=== PATIENT | female | born 2000 | race Caucasian/White ===

== ENCOUNTER 2018-04-04 10:31 | Emergency (ER) | payer SELFPAY ==
--- NOTE | 2018-04-04 11:49 | ER ---
Nurse's Notes [facility] Name: Ellen Bone Age: 17 yrs Sex: Female : 2000 Arrival Date: 04/04/2018 Time: 10:35 Bed Waiting Private MD: Jarvis Gandhi W Diagnosis: ED Course: 04/04 10:35 Patient arrived in ED. sb2 10:35 Jarvis Gandhi MD is Private Physician. sb2 10:48 Patient's name was called from ER lobby. No response. sv 11:00 Patient's name was called from ER lobby. No response. sv 11:15 Patient's name was called from ER lobby. No response. sv Administered Medications: No medications were administered Outcome: 11:48 Patient left the ED. sv Signatures: Dulce Luz, RN RN Sandee Chen sb2
== END 2018-04-04 11:48 | disposition left against medical advice (07) ==
LOC: ER 10:31
DX: Z53.21 Procedure and treatment not carried out due to patient leaving prior to being seen by health care provider (principal)

== ENCOUNTER 2019-08-06 07:06 | Day surgery (SDC) | payer OTHER ==
[2019-08-03 16:39] LABS: Absolute Lymphocytes (CBC) 2.2 K/uL (0.7-4.9); Basophils % 0.4 % (0-1.3); Hematocrit 37.1 % (36.0-45.0); MPV 10.8 fL (7.6-11.3); RBC Red Blood Cell Count 4.51 M/uL (3.86-4.86)
[2019-08-06] MEDS ORDERED: Ringers Lactate 1,000 ML IV ONE (07:31)
[2019-08-06] MEDS ORDERED: LIDOCAINE 1% W/EPI 1:100,000 MDV 20 ML VIAL ONE (07:37)
[2019-08-06 07:48] VITALS: O2SAT 100
[2019-08-06] MEDS ORDERED: PROPOFOL 200 MG/20 ML VIAL IV ONE (08:08)
[2019-08-06] MEDS ORDERED: LIDOCAINE 1% MPF 2 ML AMPULE ONE (08:08)
[2019-08-06] MEDS ORDERED: FENTANYL CITR 100 MCG/2 ML ONE (08:08)
[2019-08-06] MEDS ORDERED: MIDAZOLAM HCL 2 MG/2 ML INJ ONE (08:08)
[2019-08-06] MEDS ORDERED: ONDANSETRON 4 MG/2 ML VIAL ONE ×3 (08:31→10:39)
[2019-08-06] MEDS ORDERED: EPHEDRINE SULF 50 MG/ML VIAL ONE (08:42)
[2019-08-06] MEDS ORDERED: KETOROLAC 30 MG/ML INJ ONE (09:17)
[2019-08-06] MEDS ORDERED: Mastisol Adhesive Liq ONE (09:19)
--- NOTE | 2019-08-06 09:28 | P.BOP ---
Preoperative diagnosis: cervical LAD Postoperative diagnosis: same Primary procedure: excision deep cervical LN Senior Property Accountant: NONE,NONE Estimated blood loss: <5ml Specimen: R cervical LN, fresh to path Findings: fleshy pink LN Anesthesia: General Complications: None Implants: none Fluids & blood products: crystalloid 600ml Transferred to: Recovery Room Condition: Good
[2019-08-06] MEDS: HYDROMORPHONE HCL 1 MG/ML INJ ONE ×2 (10:00→10:06)
[2019-08-06] MEDS ORDERED: TRAMADOL HCL 50 MG TAB ONE (10:33)
[2019-08-06 11:23] VITALS: BP 128/69; TEMP 98.1
--- NOTE | 2019-08-06 20:50 | OP ---
Date of Procedure: 08/06/2019 Surgeon: Dulce Newby MD Indication For Procedure: Ellen is a 18-year-old with a history of palpable cervical lymphadenopat hy for several months. She underwent an ultrasound of the neck demonstrating an 11 and 17 mm lymph n odes, but they were nonspecific. The risks, benefits, and alternatives and differential diagnosis we re discussed with the patient and her mother. They opted for excisional lymph node biopsy. Description Of Procedure: The patient was brought to the operating room. She was placed under gener al anesthesia via LMA. A shoulder roll was placed. The neck was extended. Due to change in positio maxime compared to clinic evaluation, the ultrasound was brought to the field to aid an identification of the lymph nodes and to aid in decision making regarding incision placement. The lymph nodes were located in the upper portion of the carotid sheath at the level of the hyoid. Once identification an d planned incision site was made, the ultrasound was removed from the field and the patient's neck wa s prepped and draped in a standard fashion using Betadine. A 2 to 2.5 cm incision was made through t he skin and subcutaneous tissues. The tissues were bluntly dissected and the platysma was identified . This platysma was divided with Bovie electrocautery. Careful dissection in the field was undertak en and the skin edges were retracted using a Weitlaner. The anterior border of the sternocleidomasto id muscle was identified. The tissues were carefully dissected and retracted. The carotid sheath wa s identified and entered. Prior to entering the carotid sheath, a small lymph node was noted, but wa s approximately 5 mm. It was removed and sent with the main specimen. After opening the carotid she ath, careful dissection using Eden allowed identification of the 2 lymph nodes noted on clinical an d radiographic exam. These lymph nodes were carefully dissected with the Harmon electrocautery and a peanut dissector. Both of the enlarged lymph nodes were removed. Bleeding was very minimal. After removal of the lymph nodes, the surgical site was examined. There was no significant bleeding. The area was irrigated with sterile saline and closed in layered fashion using 4-0 Vicryl deep sutures f or closure of the platysmal and dermal layers and closure in a subcuticular fashion using 5-0 Monocry l for the skin. The medial part of the incision had a small gap and this was closed with 2 interrupt ed 5-0 Vicryl sutures. Steri-Strips were applied with Mastisol to the incision site and the procedur e was concluded. The patient was returned to care of anesthesia for awakening and extubation in the operating room, which proceeded without difficulty. Complications: None. Disposition: Patient will be discharged home in the care of her family and follow up with Dr. Lilia barth in approximately 10 days for evaluation of wound healing. ELVA Voice ID: [id number] Report ID: [id number]
== END 2019-08-06 12:07 | disposition home or self-care (01) ==
LOC: OR 07:06
PROVIDERS: ATTEND Otolaryngology
PROC: 07B10ZX Excision of Right Neck Lymphatic, Open Approach, Diagnostic (ICD-10-PCS; principal; 2019-08-06 08:15)
DX: R59.0 Localized enlarged lymph nodes (principal); Z80.9 Family history of malignant neoplasm, unspecified; Z83.3 Family history of diabetes mellitus; Z82.49 Family history of ischemic heart disease and other diseases of the circulatory system
CPT/HCPCS: 85025; 36415; 81025; 88307; 38510; J2704; J2250; J3010; J2001; J1170; J7120; J2405 ×3; 88305

== ENCOUNTER 2022-01-14 08:06 | Day surgery (SDC) | payer OTHER ==
[2022-01-11 14:26] LABS: Absolute Lymphocytes (CBC) 2.1 K/uL (0.7-4.9); Hematocrit 37.7 % (36.0-45.0); Lymphocytes % 26.1 % (15.3-44.8); MPV 9.6 fL (7.6-11.3); RBC Red Blood Cell Count 4.56 M/uL (3.86-4.86)
[2022-01-14 08:32] LABS: Specific Gravity > 1.030 (1.005-1.030)
[2022-01-14] MEDS ORDERED: Ringers Lactate 1,000 ML IV ONE (08:33)
[2022-01-14] MEDS ORDERED: CEFAZOLIN/SWI 2gm 2 GM/20 ML SYR ONE (08:33)
[2022-01-14] MEDS ORDERED: propofoL 200 MG/20 ML VIAL IV ONE (09:29)
[2022-01-14] MEDS ORDERED: FENTANYL CITR 100 MCG/2 ML ONE (09:36)
[2022-01-14] MEDS ORDERED: LIDOCAINE 2% MPF 5 ML VIAL ONE (09:37)
[2022-01-14] MEDS ORDERED: KETOROLAC 30 MG/ML INJ ONE (09:37)
[2022-01-14] MEDS ORDERED: MIDAZOLAM HCL 2 MG/2 ML INJ ONE (09:37)
[2022-01-14] MEDS ORDERED: dexAMETHasone 10 MG/ML VIAL ONE (09:37)
[2022-01-14] MEDS ORDERED: LIDOCAINE 1% 20 ML MDV ONE (09:41)
[2022-01-14] MEDS ORDERED: BUPIVACAINE 0.5% PF 10 ML VIAL ONE (09:41)
--- NOTE | 2022-01-14 10:11 | P.OP ---
Preoperative diagnosis: RIGHT Axillary Cyst Postoperative diagnosis: RIGHT Axillary Cyst Primary procedure: Wide local excision of RIGHT Axillary Cyst Anesthesia: GETA + Local Estimated blood loss: <5cc Specimen: axillary tissue Findings: axillary cyst, possible hidradenitis Complications: None Transferred to: Recovery Room Condition: Good
[2022-01-14] MEDS ORDERED: ONDANSETRON 4 MG/2 ML VIAL ONE ×2 (10:13→11:41)
[2022-01-14] MEDS: MEPERIDINE HCL 25 MG/ML SYR ONE ×2 (10:43→10:48)
[2022-01-14 10:52] VITALS: O2SAT 100
[2022-01-14 14:08] VITALS: BP 140/73; TEMP 97
--- NOTE | 2022-01-14 20:55 | OP ---
Date of Procedure: 01/14/2022 Surgeon: Duc Guillaume MD, Preoperative Diagnosis: Right axillary cyst. Postoperative Diagnosis: Right axillary cyst. Procedure Performed: Wide local excision, right axillary cyst. Anesthesia: General endotracheal plus local with 0.25% Marcaine. Estimated Blood Loss: Less than 5 cc. Specimen: Axillary tissue. Findings: Axillary cyst, possible hidradenitis. Complications: None. Disposition: Patient was transferred to recovery room in good condition. Procedure In Detail: After informed consent was obtained, patient was brought to the operating room, prepped and draped in the usual sterile fashion. After adequate anesthesia was achieved, I anesthet ized the area of the right axilla around the cystic structure which was approximately 1.5 cm elliptic al through subcutaneous tissues. I then made an elliptical incision using a 15 blade down to subcuta neous tissues. I dissected circumferentially down using electrocautery to the subcutaneous fat for a pproximately 2 cm x 2.5 cm elliptical incision. This was then sent off for pathologic examination. I irrigated the area. Hemostasis was achieved with electrocautery. The wound was then closed with a deep dermal plane of 3-0 Vicryl suture and skin was closed with a 4-0 Monocryl in a running fashion. Dermabond was placed over top. The patient tolerated the procedure without any complication and transferred to PACU in good condition. All counts were correct at the e nd of the case. DANA/MARTA Voice ID: [id number] Report ID: [id number]
== END 2022-01-14 12:05 | disposition home or self-care (01) ==
LOC: OR 08:06
PROVIDERS: ATTEND Surgery
PROC: 0HBBXZZ Excision of Right Upper Arm Skin, External Approach (ICD-10-PCS; principal; 2022-01-14 09:15)
DX: L72.0 Epidermal cyst (principal); Z20.822 Contact with and (suspected) exposure to COVID-19
CPT/HCPCS: 85025; 80048; 36415; 81025; 88304; 11402; U0003; J2704; J2250; J3010; J1100; J2175; J0690; J7120; J2405 ×2

== ENCOUNTER 2022-10-05 14:20 | Emergency (ER) | payer OTHER ==
--- OUTSIDE RECORDS SUMMARY | 2022-10-05 14:24 | XMS REPORT | Continuity of Care Document ---
:2000 Author Organization [facility] t Address [address] [place] [address] Care Team Providers Name Role Phone Jarvis Gandhi Primary Care Physician Yun Fuentes MD Attending Clinician YUN FUENTES Attending Clinician Unavailable Unknown, Attending Attending Clinician Unavailable JENI BARAJAS Attending Clinician Unavailable Jeni Wren Attending Clinician Doctor Unassigned, [place] Attending Clinician Unavailable JOELLEN YOUNG Attending Clinician Unavailable Lab, Adc Fam Pob I Attending Clinician Unavailable Maryjo Bynum Attending Clinician Payers Payer Name Policy Type Policy Number Effective Date Expiration Date S ource Problems Condition Condition Condition Status Onset Resolution Last Treating Co mments Source Name Details Category Date Date Treatment Clinician Date No known No known Disease Unive rs active active ity of problems problems [facility] Allergies, Adverse Reactions, Alerts Allergy Allergy Status Severity Reaction(s) Onset Inactive Treating Comm ents Source Name Type Date Date Clinician NO KNOWN Drug Active Univers ALLERGIE Class ity of S [facility] Social History Social Habit Start Date Stop Date Quantity Comments Source Exposure to 2022-04-30 2022-05-10 Not sure University of SARS-CoV-2 00:00:00 14:48:00 [facility] (event) [place] Tobacco use and 2022-05-10 2022-05-10 Smokeless tobacco Un iversity of exposure 00:00:00 00:00:00 non-user [facility] Sex Assigned [birth year] Universit y of 00:00:00 00:00:00 [facility] Smoking Status Start Date Stop Date Source Never smoked tobacco [facility] Medications Ordered Filled Start Stop Current Ordering Indication Dosage Frequency Signature Comments Components Source Medication Medication Date Date Medication? Clinician (SIG) Name Name ISOTRETINJAMES 2021- No Take by Un bari N (ACCUTANE 7-22 07-22 mouth. ity o f ORAL) 15:49: 00:00 [place] 05 :00 [facility] Branch bromphenira Yes [id number] 5mL Take 5 mL Univers mine-pseudo 7-22 by mouth 4 it y of ephedrine-D [place] ([place] (BROMF[place] 00 times Medical DM) 2-30-10 daily as Bran ch mg/5 mL needed for syrup Congestion /Allergies . codeine-gua 0 Yes 5mL Take 5 mL U nivers ifenesin 7-22 by mouth ity of 10-100 mg/5 00:00: every 6 [place] as mL oral 00 (six) Medical solution hours as Branch needed for Cough. Indication s: cough bromphenira Yes [id number] 5mL Take 5 mL Univers mine-pseudo 7-22 by mouth 4 it y of ephedrine-D 00:00[place] ([place] (BROMF[place] 00 times Medical DM) 2-30-10 daily as Bran ch mg/5 mL needed for syrup Congestion /Allergies . codeine-gua 2021-0 Yes 5mL Take 5 mL U nivers ifenesin 7-22 by mouth ity of 10-100 mg/5 00:00: every 6 [place] as mL oral 00 (six) Medical solution hours as Branch needed for Cough. Indication s: cough ISOTRETINOI 2019-0 Yes Take by Uni vers N (ACCUTANE 1-11 mouth. ity of ORAL) 22:26: [address] ISOTRETINOI 2019-0 Yes Take by Uni vers N (ACCUTANE 1-11 mouth. ity of ORAL) 22:26: [address] ISOTRETINOI 2019-0 Yes Take by Uni vers N (ACCUTANE 1-11 mouth. ity of ORAL) 16:26: [address] ISOTRETINOI 2020-0 Yes Take by Uni vers N (ACCUTANE 1-11 mouth. ity of ORAL) 16:26: [place] [facility] Branch metoclopram 2020-0 Yes [id number] 1 tab Univers kimberlee HCl 10 1-11 every 4hr ity of mg tablet 00:00: as needed [place] as 00 for nausea Medical Branch acetaminoph 2020-0 Yes [id number] /2 - 1 Univers en-codeine 1-11 tab Every ity of 300-30 mg 00:00: 4hrs as [place] tablet 00 needed for Medical pain or Branch cough requiring narcotic metoclopram 2020-0 Yes [id number] 1 tab Univers kimberlee HCl 10 1-11 every 4hr ity of mg tablet 00:00: as needed [place] as 00 for nausea Medical Branch acetaminoph 2020-0 Yes [id number] 2 - 1 Univers en-codeine 1-11 tab Every ity of 300-30 mg 00:00: 4hrs as [place] tablet 00 needed for Medical pain or Branch cough requiring narcotic metoclopram 2020-0 Yes [id number] 1 tab Univers kimberlee HCl 10 1-11 every 4hr ity of mg tablet 00:00: as needed [place] as 00 for nausea Medical Branch acetaminoph 2020-0 Yes [id number] 2 - 1 Univers en-codeine 1-11 tab Every ity of 300-30 mg 00:00: 4hrs as [place] tablet 00 needed for Medical pain or Branch cough requiring narcotic metoclopram 2020-0 Yes [id number] 1 tab Univers kimberlee HCl 10 1-11 every 4hr ity of mg tablet 00:00: as needed [place] as 00 for nausea Medical Branch acetaminoph 2020-0 Yes [id number] /2 - 1 Univers en-codeine 1-11 tab Every ity of 300-30 mg 00:00: 4hrs as [place] tablet 00 needed for Medical pain or Branch cough requiring narcotic metoclopram 2020-0 Yes [id number] 1 tab Univers kimberlee HCl 10 1-11 every 4hr ity of mg tablet 00:00: as needed [place] as 00 for nausea Medical Branch metoclopram 2020-0 Yes [id number] 1 tab Univers kimberlee HCl 10 1-11 every 4hr ity of mg tablet 00:00: as needed [place] as 00 for nausea Medical Branch acetaminoph 2020-0 2021- No [id number] /2 - 1 Univers en-codeine 1-11 -22 tab Every ity of 300-30 mg 00:00: 00:00 4hrs [place] tablet 00 :00 needed for Medical pain or Branch cough requiring narcotic NUVARING 2018-10 Yes INSERT 1 Unive rs 0.12-0.015 2-27 RING ity of mg/24 hr 00:00: VAG[place]ALLY [place] vaginal 00 FOR 3 Medical insert WEEKS Branch NUVARING 2018-10 Yes INSERT 1 Unive rs 0.12-0.015 2-27 RING ity of mg/24 hr 00:00: VAG[place]ALLY [place] vaginal 00 FOR 3 Medical insert WEEKS Branch NUVARING 2018-10 Yes INSERT 1 Unive rs 0.12-0.015 2-27 RING ity of mg/24 hr 00:00: VAGINALLY [place] vaginal 00 FOR 3 Medical insert WEEKS Branch NUVARING 2018-10 Yes INSERT 1 Unive rs 0.12-0.015 2-27 RING ity of mg/24 hr 00:00: VAGINALLY [place] vaginal 00 FOR 3 Medical insert WEEKS Branch NUVARING 2018-10 Yes INSERT 1 Unive rs 0.12-0.015 2-27 RING ity of mg/24 hr 00:00: VAGINALLY [place] vaginal 00 FOR 3 Medical insert WEEKS Branch NUVARING 2018-10 Yes INSERT 1 Unive rs 0.12-0.015 2-27 RING ity of mg/24 hr 00:00: VAGINALLY [place] vaginal 00 FOR 3 Medical insert WEEKS Branch acetaminoph Yes [id number] 10/21 Univers en-codeine 3-31 tab Every ity of 300-30 mg 00:00: 4hrs as [place] tablet 00 needed for Medical pain or Branch cough requiring narcotic naproxen Yes [id number] 375mg Take 1 Un bari 375 mg 3-31 tablet by ity of tablet 00:00: mouth 2 [place] 00 (two) Medical times Branch daily with meals. acetaminoph Yes [id number] 10/21 Univers en-codeine 3-31 tab Every ity of 300-30 mg 00:00: 4hrs as [place] tablet 00 needed for Medical pain or Branch cough requiring narcotic naproxen Yes [id number] 375mg Take 1 Un bari 375 mg 3-31 tablet by ity of tablet 00:00: mouth 2 (two) Medical times Branch daily with meals. acetaminoph 2017- Yes [id number] 10/21 Univers en-codeine 3-31 tab Every ity of 300-30 mg 00:00: 4hrs as [place] tablet 00 needed for Medical pain or Branch cough requiring narcotic naproxen 2017- Yes [id number] 375mg Take 1 Un bari 375 mg 3-31 tablet by ity of tablet 00:00: mouth 2 [place] (two) Medical times Branch daily with meals. acetaminoph Yes [id number] 10/21 Univers en-codeine 3-31 tab Every ity of 300-30 mg 00:00: 4hrs as [place] tablet 00 needed for Medical pain or Branch cough requiring narcotic naproxen Yes [id number] 375mg Take 1 Un bari 375 mg 3-31 tablet by ity of tablet 00:00: mouth 2 [place] (two) Medical times Branch daily with meals. naproxen Yes [id number] 375mg Take 1 Un bari 375 mg 3-31 tablet by ity of tablet 00:00: mouth 2 [place] (two) Medical times Branch daily with meals. naproxen Yes [id number] 375mg Take 1 Un bari 375 mg 3-31 tablet by ity of tablet 00:00: mouth 2 [place] (two) Medical times Branch daily with meals. acetaminoph 2021- No [id number] 10/21 Univers en-codeine 3-31 -22 tab Every ity of 300-30 mg 00:00: 00:00 4hrs [place] tablet 00 :00 needed for Medical pain or Branch cough requiring narcotic Vital Signs Vital Name Observation Time Observation Value Comments Source Systolic blood 2022-05-10 20:36:00 126 mm[Hg] Univer sity of pressure [facility] Diastolic blood 2022-05-10 20:36:00 83 mm[Hg] Unive rsity [facility] Heart rate 2022-05-10 20:36:00 103 /min Universi [facility] Body temperature 2022-05-10 20:36:00 36.83 Jennifer [facility] 2022-05-10 20:36:00 16 /min [facility] Body height 2022-05-10 20:36:00 180.3 cm Universi ty of [facility] Body weight 2022-05-10 20:36:00 112.492 kg Universi ty [facility] BMI 2022-05-10 20:36:00 34.59 kg/m2 [facility] Oxygen saturation in 2022-05-10 20:36:00 99 /min University of Arterial blood by [facility] Pulse oximetry Branch Respiratory rate 2021-10-07 00:04:00 17 /min [facility] Body height 2021-10-07 00:04:00 181.6 cm [facility] Body weight 2021-10-07 00:04:00 103.08 kg [facility] BMI 2021-10-07 00:04:00 31.25 kg/m2 [facility] Oxygen saturation in 2021-10-07 00:04:00 98 /min [place] of Arterial blood by [facility] Pulse oximetry Branch Systolic blood 2021-10-07 00:04:00 121 mm[Hg] [facility] pressure [facility] Diastolic blood 2021-10-07 00:04:00 78 mm[Hg] [facility] Heart rate 2021-10-07 00:04:00 101 /min [facility] Body temperature 2021-10-07 00:04:00 36.83 Jennifer [facility] Procedures Procedure Date / Time Performed Performing Clinician Rosana cummings POCT MOLECULAR FLU 2021-10-07 00:14:00 Unknown, Attending [facility] POCT MOLECULAR STREP 2021-10-07 00:11:00 Unknown, Attending [facility] ASSIGNMENT OF BENEFITS 2021-10-06 23:54:57 Doctor Unassigned, No [facility] Encounters Start End Encounter Admission Attending Care Care Encounter Source Date/Time Date/Time Type Type Clinicians Facility Department ID 2022-05-15 2022-05-15 Telephone Ran [facility] [id number] [facility] 00:00:00 00:00:00 [facility] [id number] it y of JUDA [id number] Arnaldo as BRIGHT?BLEA [id number] [address] MEDICAL OFFICE BUILDING 2022-05-10 2022-05-10 Outpatient R RAN [facility] [id number] Univers 15:20:00 15:42:36 YUN itjenna [facility] 2022-05-10 2022-05-10 Urgent Yun Fuentes [facility] [id number] Univers 15:20:00 15:42:36 Care Unknown, Attending HEALTH [id number] ity of JUDA [id number] Arnaldo as BRIGHT?BLEA [id number] [address] MEDICAL OFFICE [facility] 2021-10-06 2021-10-06 Outpatient R JENN [facility] [id number] Univers 17:20:00 18:35:02 JENI ity [facility] 2021-10-06 2021-10-06 Urgent Jeni Barajas [facility] [id number] Univers 17:20:00 18:35:02 Care Unknown, Attending HEALTH [id number] ity of [place] [id number] Arnaldo as BRIGHT?BLEA [id number] [address] MEDICAL OFFICE [facility] 2021-10-06 2021-10-06 Orders Doctor CAMELIA [id number] Univers 00:00:00 00:00:00 Only Unassigned, IRENE [id number] ity of [place] [facility] [id number] Arnaldo as [id number] [address] 2021-08-13 2021-08-13 Outpatient R HECTOR [facility] [id number] Univers 17:30:00 17:30:00 JOELLEN jimenez [facility] 2020-05-24 2020-05-24 Laboratory Lab, [facility] [id number] 16:06:04 16:26:04 Only Fam Pob I Health [id number] [place] [id number] Professio [id number] [place] [address] [address] 2020-05-24 2020-05-24 Laboratory Lab, Adc Fam Pob I [facility] [id number] Univers 16:06:04 16:26:04 Only Maryjo Crook [id number] ity of [place] 4.2.7.2.686 Arnadlo as Professio [id number] Me dical [address] Office Building [facility] 2020-05-24 2020-05-24 Outpatient R [facility] [id number] Univers 16:00:00 16:00:00 ity of [facility] 2020-05-24 2020-05-24 Letter Doctor CAMELIA [id number] 00:00:00 00:00:00 (Out) Unassigned, IRENE [id number] [place] [facility] 4.2.7.2.686 [id number] [facility] 2020-05-24 2020-05-24 Letter Doctor CAMELIA [id number] Univers 00:00:00 00:00:00 (Out) Unassigned, IRENE [id number] ity of [place] [facility] 4.2.7.2.686 Arnaldo as [phone] [address] Results Test Description Test Time Test Comments Results Result Comments Source POCT MOLECULAR FLU 2021-10-07 00:25:23 Test Item Value Reference Range Interpretation Comme nts POCT Molecular FluA (test code = 06970-8) Negative Negative POCT Molecular FluB (test code = 78987-8) Negative Negative Lab Interpretation (test code = 18320-4) Normal [id number] 00:21:23 Test Item Value Reference Range Interpretation Comments POCT Molecular Strep (test code = Negative Negative 45719-2) Lab Interpretation (test code = Normal 31569-7) [facility]
[2022-10-05 14:53] LABS: Absolute Lymphocytes (CBC) 2.2 K/uL (0.7-4.9); Hematocrit 40.4 % (36.0-45.0); Lymphocytes % 28.2 % (15.3-44.8); MCV 83.3 fL (80-100); MPV 9.2 fL (7.6-11.3); RBC Red Blood Cell Count 4.84 M/uL (3.86-4.86)
[2022-10-05 15:02] LABS: Protime INR 0.95
[2022-10-05 15:12] LABS: Urine Blood Negative (Negative); Urine Glucose Negative (Negative); Urine Protein Negative (Negative); Urine Specific Gravity >=1.030 (1.005-1.030); Urine pH 6.5 (5.0-7.0)
[2022-10-05 15:13] LABS: ALT/SGPT 23 U/L (13-56); AST/SGOT 13 U/L (15-37); Albumin 3.2 g/dL (3.4-5.0); Alkaline Phosphatase 61 U/L (45-117); BUN Blood Urea Nitrogen 14 mg/dL (7-18); Bicarbonate 27 mmol/L (21-32); Bilirubin Direct < 0.1 mg/dL (0-0.2); Bilirubin Total 0.3 mg/dL (0.2-1.0); Glomerular Filtration Rate 80 ml/min (=/>90); Glucose Level 144 mg/dL (74-106); Potassium 3.7 mmol/L (3.5-5.1); Protein, Total 7.3 g/dL (6.4-8.2); Sodium Level 137 mmol/L (136-145)
[2022-10-05 15:22] LABS: SARS-CoV-2 Antigen Rapid Res Negative (Negative)
[2022-10-05 15:28] LABS: Barbiturates NEGATIVE (NEGATIVE); Benzodiazepines NEGATIVE (NEGATIVE); Cocaine NEGATIVE (NEGATIVE); METHAMPHETAM NEGATIVE (NEGATIVE); Methadone NEGATIVE (NEGATIVE); Opiates NEGATIVE (NEGATIVE); Phencyclidine NEGATIVE (NEGATIVE); THC Cannibis NEGATIVE (NEGATIVE)
--- NOTE | 2022-10-05 17:36 | ER ---
Nurse's Notes [facility] Name: Ellen Bone Age: 21 yrs Sex: Female : 2000 Arrival Date: 10/05/2022 Time: 14:23 Bed 13 Private MD: Diagnosis: Acute stress reaction Presentation: 10/05 14:42 Chief complaint: Patient states: Suicidal thoughts x 1 week, recently had lexapro dose ph increased and rexulti added to treatment, pt states, " I just feel like there's static in my head and I have a tension headache and I keep having thoughts telling me to take a whole bottle of sedatives. I know I don't want to my kill myself nut the thought keeps going through my head." Denies attempt, mother is at bedside. Coronavirus screen: Vaccine status: Patient reports being unvaccinated. Ebola Screen: No symptoms or risks identified at this time. Initial Sepsis Screen: Does the patient meet any 2 criteria? No. Patient's initial sepsis screen is negative. Does the patient have a suspected source of infection? No. Patient's initial sepsis screen is negative. Risk Assessment: Do you want to hurt yourself or someone else? Patient reports desire/thoughts of hurting themselves or someone else. Provider notified. Onset of symptoms was October 05, 2022. 14:42 Method Of Arrival: Ambulatory 14:42 Acuity: FERMÍN 2 ph Triage Assessment: 14:50 General: Appears in no apparent distress. Behavior is calm, cooperative. Pain: Denies ph pain. Neuro: Level of Consciousness is awake, alert, obeys commands, Oriented to person, place, time, situation. Historical: - Allergies: 14:48 No Known Allergies; ph - Home Meds: 14:48 Lexapro Oral [Active]; Rexulti oral [Active]; ph - PMHx: 14:48 Depressive disorder; ph - Immunization history:: Adult Immunizations unknown. - Social history:: Smoking status: Patient denies any tobacco usage or history of. Patient uses alcohol, occasionally. Screenin:[address] [facility] ED Fall Risk Assessment (Adult) History of falling in the last 3 months, mb9 including since admission No falls in past 3 months (0 pts) Confusion or Disorientation No (0 pts) Intoxicated or Sedated No (0 pts) Impaired Gait No (0 pts) Mobility Assist Device Used No (0 pt) Altered Elimination No (0 pt) Score/Fall Risk Level 0 - 2 = Low Risk. Abuse screen: Denies threats or abuse. Nutritional screening: No deficits noted. Tuberculosis screening: No symptoms or risk factors identified. Assessment: 14:20 Respiratory: Airway is patent Respiratory effort is even, unlabored, Respiratory mb9 pattern is regular, symmetrical, Breath sounds are clear bilaterally. 14:30 Reassessment: pt states "I've been having these thoughts about harming myself by taking mb9 pills for about one week now." Pt denies wishing she were and intending on carrying out this plan. See C-SSRS screening form for more information. General: Appears in no apparent distress. comfortable, Behavior is calm, cooperative, appropriate for age. Pain: Denies pain. Neuro: Level of Consciousness is awake, alert, obeys commands, Oriented to person, place, time, situation, Appropriate for age Reports "it feels like I have static in my head". Cardiovascular: Heart tones S1 S2 present Rhythm is regular. GI: Abdomen is round non-distended. : No signs and/or symptoms were reported regarding the genitourinary system. EENT: No signs and/or symptoms were reported regarding the EENT system. Derm: Skin is pink, warm \\T\\ dry. Musculoskeletal: Range of motion: intact in all extremities. 15:30 Reassessment: No changes from previously documented assessment. Patient states symptoms mb9 have not improved. Cardiovascular: Rhythm is regular. Respiratory: Airway is patent. Derm: Skin is pink, warm \\T\\ dry. 16:30 Reassessment: Entered pts room to answer call maria teresa mom states "You all won't be able mb9 to do anything for her and she's miserable. We are ready to go." HEALTH SAFETY INSTRUCTOR, Shahid, notified. 16:49 Reassessment: Pt on phone with [facility]. mb9 17:58 Reassessment: pt denies any suicidal ideations. Airway patent. Respirations are even mb9 and unlabored. Rhythm is regular. Psych: 14:30 [place] Suicide Severity Screening: In the past month, have you wished you were mb9 or wished you could go to sleep and not wake up? Patient responds "No." "In the past month, have you actually had any thoughts of killing yourself?" Patient responds "yes." "In your lifetime, have you ever done anything, started to do anything, or prepared to do anything to end your life?" Patient responds "no.". Subjective: Patient's mood is sad, Delusions are denied, Hallucinations are denied Having thoughts of suicide. Denies suicidal plan. Objective: Patient is cooperative, Speech is normal, Affect is flat. Interventions: Removed personal items and placed in bag. Patient placed in hospital gown. Searched person for dangerous items. Urine collected and sent for urine drug test. Belonging list filled out. 14:30 Safety Checks: Personal items have been removed. Door is open. Visitors are present. Pt mb9 denies substance abuse. Commitment: Patient will be a voluntary commitment. Vital Signs: 14:42 BP 120 / 62; Pulse 91; Resp 18; Temp 98.2; Pulse Ox 100% on R/A; Weight 113.4 kg; ph Height 5 ft. 11 in. (180.34 cm); 15:30 BP 117 / 69; Pulse 89; Resp 18; Pulse Ox 100% ; Pain 0/10; mb9 16:50 BP 120 / 70; Pulse 89; Resp 18; Pulse Ox 100% ; mb9 17:58 BP 144 / 77; Pulse 80; Resp 18; Pulse Ox 100% ; mb9 14:42 Body Mass Index 34.87 (113.40 kg, 180.34 cm) ph ED Course: 14:23 Patient arrived in ED. rg4 14:26 Leonela Key FNP-C [facility]. kb 14:26 Jordi Robbins MD is Attending Physician. kb 14:46 Jennifer Jean-Baptiste RN is Primary Nurse. mb9 14:48 Triage completed. ph 14:50 Arm band placed on Patient placed in an exam room. ph 14:50 Fall risk band placed. Placed in gown. Bed in low position. Call light in reach. Side mb9 rails up X 1. 15:10 called the [facility] Crisis line/ Alexis will page out the screener behavior interventionist. eb 16:48 connected Joellen from [facility] with patient via iphone for patient screening. eb 17:59 No provider procedures requiring assistance completed. IV discontinued, intact, mb9 bleeding controlled, No redness/swelling at site. Pressure dressing applied. Administered Medications: No medications were administered Medication: 18:00 VIS not applicable for this client. mb9 Outcome: 17:35 Discharge ordered by . camilo 18:00 Discharged to home ambulatory. mb9 18:00 Condition: stable 18:00 Discharge instructions given to patient, Instructed on discharge instructions, follow up and referral plans. Demonstrated understanding of instructions, follow-up care. 18:00 Patient left the ED. mb9 Signatures: Leonela Key, CONCILIATION COURT JUDGE-C CONCILIATION COURT JUDGE-CkRosie Thakkar RN RN brenton Vigil, Faye rg4 Cristiane Valencia, Jennifer Bell RN RN mb9 Corrections: (The following items were deleted from the chart) 15:51 15:45 General: Appears in no apparent distress. comfortable, Behavior is calm, mb9 cooperative, appropriate for age, mb9 : 15:45 Pain: Denies pain. mb9 mb9 15:51 15:45 Neuro: Level of Consciousness is awake, alert, obeys commands, Oriented to mb9 person, place, time, situation, Appropriate for age Reports "it feels like I have static in my head". mb9 15:51 15:45 Cardiovascular: Heart tones S1 S2 present Rhythm is regular mb9 mb9 15:51 15:45 Respiratory: Airway is patent Respiratory effort is even, unlabored, Respiratory mb9 pattern is regular, symmetrical, Breath sounds are clear bilaterally. mb9 15:51 15:45 GI: Abdomen is round non-distended, mb9 mb9 15:51 15:45 : No signs and/or symptoms were reported regarding the genitourinary system. mb99 15:51 15:45 EENT: No signs and/or symptoms were reported regarding the EENT system. mb9 mb9 15:51 15:45 Derm: Skin is pink, warm \\T\\ dry. mb9 mb9 15:51 15:45 Musculoskeletal: Range of motion: intact in all extremities, mb9 mb9 15:51 15:45 Reassessment: pt states "I've been having these thoughts about harming myself by mb9 taking pills for about one week now." Pt denies wishing she were and intending on carrying out this plan. See C-SSRS screening form for more information. mb9 16:10 16:05 BP 117 / 69; Pulse 89bpm; Resp 18bpm; Pulse Ox 100%; Pain 0/10; mb9 mb9 17:42 16:30 Reassessment: Pts mom states "You all won't be able to do anything for her and mb9 she's miserable. We are ready to go." HEALTH SAFETY INSTRUCTOR, Shahid, notified mb9
--- NOTE | 2022-10-05 17:36 | EDPHYS ---
Physician Documentation [facility] Name: Ellen Bone Age: 21 yrs Sex: Female : 2000 Arrival Date: 10/05/2022 Time: 14:23 Bed 13 Private MD: ED Physician Jordi Robbins HPI: 10/05 15:05 This 21 yrs old Female presents to ER via Ambulatory with complaints of Suicidal kb Ideation. 15:05 The patient presents to the emergency department with depression, suicide ideation. kb Onset: The symptoms/episode began/occurred 1 week(s) ago. Past psychiatric history: Psychiatric medications include: Lexapro, Rexulti, Primary psychiatric physician: Dr. David Alexis. Associated signs and symptoms: Pertinent positives; depression, suicide ideation. Severity of symptoms: At their worst the symptoms were moderate in the emergency department the symptoms are unchanged. The patient has not experienced similar symptoms in the past. The patient has been recently seen by a physician:. Pt reports she has had depression intermittently for the last year. states she was started on lexapro, then rexulti added shortly after, which was about 2 months ago. Had a telemed visit last week with Dr Hernandez's PA and her doses were increased. States she has been having thought of suicide for a week and has never had those before. States she doesn't feel like herself, "I feel insane." States she does not want to harm herself, does not want to , but is having thoughts that tell her to take a bottle of pills. . Historical: - Allergies: 14:48 No Known Allergies; ph - Home Meds: 14:48 Lexapro Oral [Active]; Rexulti oral [Active]; ph - PMHx: 14:48 Depressive disorder; ph - Immunization history:: Adult Immunizations unknown. - Social history:: Smoking status: Patient denies any tobacco usage or history of. Patient uses alcohol, occasionally. ROS: 15:03 Constitutional: Negative for fever, chills, and weight loss. kb 15:03 Psych: Positive for suicidal ideation. 15:03 All other systems are negative. Exam: 15:03 Constitutional: This is a well developed, well nourished patient who is awake, alert, kb and in no acute distress. Head/Face: Normocephalic, atraumatic. ENT: Moist Mucous membranes Cardiovascular: Regular rate and rhythm with a normal S1 and S2. No gallops, murmurs, or rubs. No pulse deficits. Respiratory: Respirations even and unlabored. No increased work of breathing. Talking in full sentences Abdomen/GI: Soft, non-tender. No distention Skin: Warm, dry with normal turgor. Normal color. MS/ Extremity: Pulses equal, no cyanosis. Neurovascular intact. Full, normal range of motion. Neuro: Awake and alert, GCS 15, oriented to person, place, time, and situation. Moves all extremities. Normal gait. 15:03 Psych: Behavior/mood is pleasant, cooperative, depressed, Affect is calm, Oriented to person, place, time, Patient having thoughts of suicide. Denies suicidal plan. Judgement / Insight is normal. Memory is normal. Delusions/hallucinations are not present. 15:04 ECG was reviewed by the Attending Physician. kb Vital Signs: 14:42 BP 120 / 62; Pulse 91; Resp 18; Temp 98.2; Pulse Ox 100% on R/A; Weight 113.4 kg; ph Height 5 ft. 11 in. (180.34 cm); 15:30 BP 117 / 69; Pulse 89; Resp 18; Pulse Ox 100% ; Pain 0/10; mb9 16:50 BP 120 / 70; Pulse 89; Resp 18; Pulse Ox 100% ; mb9 17:58 BP 144 / 77; Pulse 80; Resp 18; Pulse Ox 100% ; mb9 14:42 Body Mass Index 34.87 (113.40 kg, 180.34 cm) ph MDM: 14:26 Patient medically screened. kb 15:04 Data reviewed: vital signs, nurses notes. Data interpreted: Pulse oximetry: on room air kb is 100 %. Interpretation: normal. Test interpretation: by ED physician or midlevel provider:. 17:32 Counseling: I had a detailed discussion with the patient and/or guardian regarding: the kb historical points, exam findings, and any diagnostic results supporting the discharge/admit diagnosis, lab results, radiology results, the need for outpatient follow up, a psychiatrist, to return to the emergency department if symptoms worsen or persist or if there are any questions or concerns that arise at home. 10/05 14:34 Order name: Acetaminophen; Complete Time: 15:17 kb 10/05 14:34 Order name: Basic Metabolic Panel; Complete Time: 15:17 kb 10/05 14:34 Order name: CBC with Diff; Complete Time: 15:03 kb 10/05 14:34 Order name: ETOH Level; Complete Time: 15:17 kb 10/05 14:34 Order name: Hepatic Function; Complete Time: 15:17 kb 10/05 14:34 Order name: PT-INR; Complete Time: 15:03 kb 10/05 14:34 Order name: Ptt, Activated; Complete Time: 15:03 kb 10/05 14:34 Order name: Salicylate; Complete Time: 15:17 kb 10/05 14:34 Order name: Urine Drug Screen; Complete Time: 15:36 kb 10/05 14:34 Order name: EKG; Complete Time: 14:35 kb 10/05 14:34 Order name: EKG - Nurse/Tech; Complete Time: 15:06 kb 10/05 14:37 Order name: SARS RAPID; Complete Time: 15:36 kb 10/05 15:13 Order name: Urine Dipstick-Ancillary; Complete Time: 15:17 EDMS 10/05 15:13 Order name: Urine --Ancillary (enter results); Complete Time: 15:17 eb 10/05 14:34 Order name: IV Saline Lock; Complete Time: 15:06 kb 10/05 14:34 Order name: Labs collected and sent; Complete Time: 15:06 kb 10/05 14:34 Order name: Suicide Precautions; Complete Time: 15:06 kb 10/05 14:34 Order name: Suicide Screening ([place]); Complete Time: 15:06 kb 10/05 14:34 Order name: Urine Dipstick-Ancillary (obtain specimen); Complete Time: 15:06 kb 10/05 14:34 Order name: Urine Test (obtain specimen); Complete Time: 15:06 kb EC:04 Rate is 74 beats/min. Rhythm is regular. QRS [place] is Normal. [place] interval is normal at kb 134 msec. QRS interval is normal at 88 msec. QT interval is normal at 404 msec. Administered Medications: No medications were administered Disposition: 18:28 Co-signature as Attending Physician, Jordi Robbins MD. rn Disposition Summary: 10/05/22 17:35 Discharge Ordered Location: Home kb Condition: Stable kb Diagnosis - Acute stress reaction kb Followup: kb - With: Emergency Department - When: As needed - Reason: Worsening of condition Followup: kb - With: Private Physician - When: 2 - 3 days - Reason: Recheck today's complaints, Continuance of care, Re-evaluation by your physician Discharge Instructions: - Discharge Summary Sheet kb - Suicidal Feelings: How to Help Yourself kb Forms: - Medication Reconciliation Form kb - Thank You Letter kb - Antibiotic Education kb - Prescription Opioid Use kb - Work release form ll1 Signatures: Dispatcher [employer] EDLeonela Daily, STALIN-C STALIN-Jordi Lerner MD MD rn Rosie Lee RN RN ph
[2022-10-05 18:12] VITALS: TEMP 98.2; O2SAT 100
[2022-10-05 18:15] VITALS: BP 144/77
--- NOTE | 2022-10-06 15:50 | EKG ---
Test Date: 2022-10-05 Test Time: 14:55:49 [employer] Operator: SHARON MEASUREMENT RESULTS: Intervals: Rate: 74 NM: 134 QRSD: 88 QT: 364 QTc: 404 [place] Laird: P: 52 NM: 134 QRS: 74 T: 61 INTERPRETIVE STATEMENTS: Normal sinus rhythm Normal ECG No previous ECG available for comparison Electronically Signed On 10-06-22 15:49:20 DOT COMPLIANCE SPECIALIST by Tristan Meredith
== END 2022-10-05 18:00 | disposition home or self-care (01) ==
LOC: ER 14:20
DX: F43.0 Acute stress reaction (principal); F32.A Depression, unspecified; Z20.822 Contact with and (suspected) exposure to COVID-19
CPT/HCPCS: 36415; 80048; 80076; 80307; 80320; 80329; 81003; 81025; 85025; 85610; 85730; 87811; 93005; 99284

== ENCOUNTER 2025-07-11 23:03 | Emergency (ER) | payer BC, OTHER ==
--- OUTSIDE RECORDS SUMMARY | 2025-07-11 23:07 | XMS REPORT | Continuity of Care Document ---
Author Name Unknown Address [address] [facility] [place] [address] Organization [facility] [place] Address [address] [facility] [place] [address] Care Team Providers Care Diamond Wheel Molder Name Role Phone RANCHO ORTEGA Primary Care Physician Skye lidia Elaine RN, Charla Pineda Attending Clinician Unavailab Peral Sapp Attending Clinician [phone] Unknown, Attending Attending Clinician Unavailab le UNKNOWN, ATTENDING Attending Clinician Unavailab le Doctor Unassigned, Zwolle Attending Clinician U Yun Brito MD Attending Clinician [phone] YUN FUENTES Attending Clinician Unavailable JENI BARAJAS Attending Clinician Unavailable Jeni Wren Attending Clinician [phone] JOELLEN YOUNG Attending Clinician Unavailabl e Lab, Adc Fam Pob I Attending Clinician Unavailab Maryjo Ritter Attending Clinician [phone] Payers Payer Name Policy Type Policy Number Effective Date Expirati on Date Source HIM [facility] O [id number] 2024 00:00:00 Problems Condition Name Condition Details Condition Category Status Onset Date Resolution Date Last Treatment Date Treating Clinician Comments Source No known active problems No known active problems Disease [facility] Allergies, Adverse Reactions, Alerts Allergy Name Allergy Type Status Severity Reaction(s) Onset Date Inactive Date Treating Clinician Comments Source NO KNOWN ALLERGIE S Drug Class Active [facility] Social History Social Habit Start Date Stop Date Quantity Comments Source Exposure to SARS-CoV-2 (event) 2022-11-10 00:00:00 2022-11-20 15:29:[address] [facility] Tobacco use and exposure 2022-05-10 00:00:00 2022-05-10 00:00:00 Smokeless tobacco non-user [facility] Sex Assigned At 2000 00:00:00 2000 00:00:[address] [facility] Smoking Status Start Date Stop Date Source Tobacco smoking consumption unknown [facility] Never smoked tobacco [facility] Medications Ordered Medication Name Filled Medication Name Start Date Stop Date Current Medication? Ordering Clinician Indication Dosage Frequency Signature (SIG) Comments Components Source ISOTRETINOI N (ACCUTANE ORAL) 05-10 15:49: 05 05-10 00:00 :00 No Take by mouth. [facility] bromphenira mine-pseudo ephedrine-D M (BROMFED DM) 2-30-10 mg/5 mL syrup 05-10 00:00: 00 Yes [id number] 5mL Take 5 mL by mouth 4 (four) times daily as needed for Congestion /Allergies . [facility] codeine-gua ifenesin 10-100 mg/5 mL oral solution 05-10 00:00: 00 Yes 5mL Take 5 mL by mouth every 6 (six) hours as needed for Cough. Indication s: cough [facility] ISOTRETINOI N (ACCUTANE ORAL) 10-30 22:26: 32 Yes Take by mouth. [facility] ISOTRETINOI N (ACCUTANE ORAL) 10-30 16:26: 32 Yes Take by mouth. [facility] metoclopram kimberlee HCl 10 mg tablet 10-30 00:00: 00 Yes [id number] 1 tab every 4hr as needed for nausea [facility] acetaminoph en-codeine 300-30 mg tablet 10-30 00:00: 00 05-10 00:00 :00 No [id number] 1/2 - 1 tab Every 4hrs as needed for pain or cough requiring narcotic [facility] NUVARING 0.12-0.015 mg/24 hr vaginal insert 2018-10 00:00: 00 Yes INSERT 1 RING VAGINALLY FOR 3 WEEKS [facility] naproxen 375 mg tablet 01-17 00:00: 00 Yes [id number] 375mg Take 1 tablet by mouth 2 (two) times daily with meals. [facility] acetaminoph en-codeine 300-30 mg tablet 01-17 00:00: 00 05-10 00:00 :00 No [id number] 1/2 - 1 tab Every 4hrs as needed for pain or cough requiring narcotic [facility] Vital Signs Vital Name Observation Time Observation Value Comments S ource Systolic blood pressure 2022-11-20 21:39:00 106 mm[Hg] [facility] Diastolic blood pressure 2022-11-20 21:39:00 72 mm[Hg] [facility] Heart rate 2022-11-20 21:39:00 82 /min [facility] Body temperature 2022-11-20 21:39:[address] [facility] Respiratory rate 2022-11-20 21:39:00 17 /min [facility] Body height 2022-11-20 21:39:00 180.3 cm [facility] Body weight 2022-11-20 21:39:00 121.609 kg [facility] BMI 2022-11-20 21:39:00 37.39 kg/m2 [facility] Oxygen saturation in Arterial blood by Pulse oximetry 2022-11-20 21:39:00 97 /min [facility] Oxygen saturation in Arterial blood by Pulse oximetry 2022-05-10 20:36:00 99 /min [facility] Systolic blood pressure 2022-05-10 20:36:00 126 mm[Hg] [facility] Diastolic blood pressure 2022-05-10 20:36:00 83 mm[Hg] [facility] Heart rate 2022-05-10 20:36:00 103 /min [facility] Body temperature 2022-05-10 20:36:[address] [facility] Respiratory rate 2022-05-10 20:36:00 16 /min [facility] Body height 2022-05-10 20:36:00 180.3 cm [facility] Body weight 2022-05-10 20:36:00 112.492 kg [facility] BMI 2022-05-10 20:36:00 34.59 kg/m2 [facility] Systolic blood pressure 2021-10-07 00:04:00 121 mm[Hg] [facility] Diastolic blood pressure 2021-10-07 00:04:00 78 mm[Hg] [facility] Heart rate 2021-10-07 00:04:00 101 /min [facility] Body temperature 2021-10-07 00:04:[address] [facility] Respiratory rate 2021-10-07 00:04:00 17 /min [facility] Body height 2021-10-07 00:04:00 181.6 cm [facility] Body weight 2021-10-07 00:04:00 103.08 kg [facility] BMI 2021-10-07 00:04:00 31.25 kg/m2 [facility] Oxygen saturation in Arterial blood by Pulse oximetry 2021-10-07 00:04:00 98 /min [facility] Procedures Procedure Date / Time Performed Performing Clinician Source POCT MOLECULAR STREP 2022-11-20 21:36:00 Unknown, Attzoila ta [facility] CONSENT/REFUSAL FOR DIAGNOSIS AND TREATMENT 2022-11-20 21:29:47 Doctor Unassigned, Zwolle [facility] POCT MOLECULAR FLU 2021-10-07 00:14:00 Unknown, Attend ing [facility] POCT MOLECULAR STREP 2021-10-07 00:11:00 Unknown, Attzoila ta [facility] ASSIGNMENT OF BENEFITS 2021-10-06 23:54:57 Docto r Unassigned, Zwolle [facility] PATIENT FINANCIAL RESPONSIBILITY - ALL FORMS Doctor Unassigned, Zwolle [facility] Encounters Start Date/Time End Date/Time Encounter Type Admission Type Attending [facility] Care Facility Care Department Encounter ID Source 2025-02-12 15:40:00 2025-02-12 15:40:00 Outpatient R [facility] [id number] [facility] 2022-11-21 00:00:00 2022-11-21 00:00:00 Letter (Out) Charla Elaine [facility] 1.840.114 350.1.13.10 4.2.7.2.686 [id number] [facility] 2022-11-20 15:20:00 2022-11-20 15:40:00 Urgent Care Pearl Rios Unknown, Attending [facility] 1..840.114 350.1.13.10 4.2.7.2.686 [id number] [facility] 2022-11-20 13:00:00 2022-11-20 13:00:00 Outpatient R UNKNOWN, ATTENDING [facility] [id number] [facility] 2022-11-20 00:00:00 2022-11-20 00:00:00 Orders Only Doctor Unassigned, Zwolle [facility] 1..840.114 350.1.13.10 4.2.7.2.686 [id number] [facility] 2022-05-15 00:00:00 2022-05-15 00:00:00 Telephone [facility]un Fu[facility] 1..840.114 350.1.13.10 4.2.7.2.686 [id number] [facility] 2022-05-10 15:20:00 2022-05-10 15:42:36 Outpatient R YUN FUENTES [facility] [id number] [facility] 2022-05-10 15:20:00 2022-05-10 15:42:36 Urgent Care Yun Fuentes Unknown, Attending [facility] 1.114 350.1.13.10 4.2.7.2.686 [id number] [facility] 2021-10-06 17:20:00 2021-10-06 18:35:02 Outpatient R JENI BARAJAS [facility] [id number] [facility] 2021-10-06 17:20:00 2021-10-06 18:35:02 Urgent Care Jeni Barajas Unknown, Attending [facility] 1.114 350.1.13.10 4.2.7.2.686 [id number] [facility] 2021-10-06 00:00:00 2021-10-06 00:00:00 Orders Only Doctor Unassigned, Zwolle [facility] 1.114 350.1.13.10 4.2.7.2.686 [id number] [facility] 2021-08-13 17:30:00 2021-08-13 17:30:00 Outpatient R SARITA YOUNGTANY [facility] [id number] [facility] 2020-05-24 16:06:04 2020-05-24 16:26:04 Laboratory Only Lab, Adc Fam Pob I [facility] 1.114 350.1.13.10 4.2.7.2.686 [id number] 2020-05-24 16:06:04 2020-05-24 16:26:04 Laboratory Only Lab, Adc Fam Pob I Maryjo Crook [facility] 1.114 350.1.13.10 4.2.7.2.686 [id number] [facility] 2020-05-24 16:00:00 2020-05-24 16:00:00 Outpatient R [facility] [id number] [facility] 2020-05-24 00:00:00 2020-05-24 00:00:00 Letter (Out) Doctor Unassigned, Zwolle [facility] 1.2.840.114 350.1.13.10 4.2.7.2.686 [id number] 2020-05-24 00:00:00 2020-05-24 00:00:00 Letter (Out) Doctor Unassigned, Zwolle [facility] 1.2.840.114 350.1.13.10 4.2.7.2.686 [id number] [facility] Orders Only Doctor Unassigned, Zwolle [facility] 1.2.840.114 350.1.13.10 4.2.7.2.686 [id number] [facility] Results Test Description Test Time Test Comments Results Result Co mments Source [facility] MOLECULAR [id number] 00:25:23* Test Item Value Reference Range Interpretation Comme nts POCT Molecular FluA (test co de = 10745-3) Negative Negative POCT Molecular FluB (test co de = 27621-9) Negative Negative Lab Interpretation (test cod e = 79900-2) Normal [facility] MOLECULAR [id number] 00:21:23* Test Item Value Reference Range Interpretation Comme nts POCT Molecular Strep (test c ode = 86125-6) Negative Negative Lab Interpretation (test cod e = 16249-3) Normal [facility]
[2025-07-12] MEDS ORDERED: NA CHLORIDE 0.9% 1,000 ML ONE (00:08)
[2025-07-12] MEDS ORDERED: METOCLOPRAMIDE 10 MG/2mL INJ ONE (00:08)
[2025-07-12] MEDS ORDERED: KETOROLAC 30 MG/ML INJ ONE (00:08)
[2025-07-12] MEDS ORDERED: DIPHENHYDRAMINE 50 MG/ML VIAL ONE (00:08)
[2025-07-12 00:27] LABS: Absolute Lymphocytes (CBC) 2.8 K/uL (0.7-4.9); Hematocrit 38.0 % (36.0-45.0); Hemoglobin 12.4 g/dL (12.0-15.0); MCH 27.6 pg (27.0-35.0); MCHC 32.6 g/dL (32.0-36.0); MCV 84.7 fL (80-100); MPV 10.1 fL (7.6-11.3); Nucleated RBC Absolute Count 0.0 (0-0); Nucleated Red Blood Cells % 0.2 % (0-0); RBC Red Blood Cell Count 4.49 M/uL (3.86-4.86); White Blood Count 8.90 thou/uL (4.3-10.9)
[2025-07-12 00:33] LABS: ALT/SGPT 18.0 U/L (13-56); AST/SGOT 12.0 U/L (15-37); Albumin 3.4 g/dL (3.4-5.0); Albumin/Globulin Ratio 1.0 (1.1-1.8); Alkaline Phosphatase 74.0 U/L (45-117); Anion Gap 7.3 mEq/L (5.0-15.0); BUN Blood Urea Nitrogen 19.0 mg/dL (7-18); Globulin 3.5 g/dL (2.3-3.5); Glucose Level 102.0 mg/dL (74-106); Potassium 3.3 mEq/L (3.5-5.1)
--- NOTE | 2025-07-12 01:34 | EDPHYS ---
Physician Documentation [facility] Name: Ellen Bone Age: 24 yrs Sex: Female : 2000 Arrival Date: 07/11/2025 Time: 23:03 Bed 20 Private MD: ED Physician Gino Bailon HPI: 07/12 01:15 This 24 yrs old Female presents to ER via Ambulatory with complaints of dr5 Numbness Of Face, Headache. 01:15 Onset: The symptoms/episode began/occurred acutely. Patient is a 24-year-old female dr5 with history of depression, migraines, hypothyroidism coming in with acute sudden headache that she describes as sharp from scientology to scientology. Patient reports she has mild numbness to left upper forehead with excruciating pain. Patient reports she has migraines and these headaches is similar to previous. Patient denies taking any medications prior to arrival.. Historical: - Allergies: 07/11 23:39 No Known Allergies; ha1 - PMHx: 23:39 depressive disorder; Migraine; Hypothyroidism; ha1 - PSHx: 23:39 LYMPH NODE REMOVAL OF NECK; ha1 - Immunization history:: Adult Immunizations up to date. - Infectious Disease History:: Denies. - Social history:: Smoking status: Patient denies any tobacco usage or history of. ROS: 07/12 01:15 Constitutional: as per hpi dr5 Exam: 01:15 Constitutional: This is a well developed, well nourished patient who is awake, alert, dr5 and in no acute distress. Head/Face: Normocephalic, atraumatic. Eyes: Pupils equal round and reactive to light, extra-ocular motions intact. Lids and lashes normal. Conjunctiva and sclera are non-icteric and not injected. Cornea within normal limits. Periorbital areas with no swelling, redness, or edema. ENT: Nares patent. No nasal discharge, no septal abnormalities noted. Tympanic membranes are normal and external auditory canals are clear. Oropharynx with no redness, swelling, or masses, exudates, or evidence of obstruction, uvula midline. Mucous membranes moist. Neck: Trachea midline, no thyromegaly or masses palpated, and no cervical lymphadenopathy. Supple, full range of motion without nuchal rigidity, or vertebral point tenderness. No Meningismus. Chest/axilla: Normal chest wall appearance and motion. Nontender with no deformity. No lesions are appreciated. Cardiovascular: Regular rate and rhythm with a normal S1 and S2. Normal PMI, no JVD. No pulse deficits. Respiratory: Lungs have equal breath sounds bilaterally, clear to auscultation. No rales, rhonchi or wheezes noted. No increased work of breathing, no retractions or nasal flaring. Back: No spinal tenderness. No costovertebral tenderness. Full range of motion. Skin: Warm, dry with normal turgor. Normal color with no rashes, no lesions, and no evidence of cellulitis. MS/ Extremity: Pulses equal, no cyanosis. Neurovascular intact. Full, normal range of motion. Neuro: Awake and alert, GCS 15, oriented to person, place, time, and situation. Cranial nerves II-XII grossly intact. Motor strength 5/5 in all extremities. Sensory grossly intact. Cerebellar exam normal. Normal gait. Vital Signs: 07/11 23:22 BP 126 / 82; Pulse 100; Resp 18 S; Temp 98.1; Pulse Ox 99% on R/A; Weight 111.13 kg; 1 Height 5 ft. 7 in. ; Pain 6/10; 07/12 00:45 BP 109 / 54; Pulse 73; Resp 18; Pulse Ox 99% on R/A; ha1 01:00 BP 110 / 68; Pulse 80; Resp 18 S; Pulse Ox 99% on R/A; 1 02:00 BP 117 / 65; Pulse 74; Resp 18 S; Pulse Ox 100% on R/A; 1 07/11 23:22 Body Mass Index 38.37 (111.13 kg, 170.18 cm) [facility] 07/11 23:22 Pain Scale: Adult [facility] NIH Stroke Scale Scores: 01:15 NIHSS Score: 0 dr5 MDM: 07/11 23:18 Medical Screening Exam initiated dr5 07/12 01:15 Differential diagnosis: viral Infection, Migraine, anemia, electrolyte abnormality, dr5 intracranial hemorrhage, intracranial mass. Data reviewed: vital signs, nurses notes, lab test result(s), CBC, white blood cell count, hemoglobin, hematocrit, platelets, electrolytes, sodium, potassium, chloride, serum bicarbonate, BUN, creatinine, serum glucose, Serum , radiologic studies, CT scan. Consideration of Admission/Observation Escalation of care including admission/observation considered. Discussion consider patient found to have abnormality on CT scan.. I considered the following discharge prescriptions or medication management in the emergency department I discussed and recommended Over The Counter medications, Medications were administered in the Emergency Department. See MAR. Independent interpretation of the following test(s) in the Emergency Department CT Scan: My interpretation is Independent interpretation of CT does not reveal mass or bleed. Test considered but Not performed: CT: Discussion with family and patient regarding CT scan with no red flags. Patient reports that she would like to have CT scan just to make sure. Risks and benefits explained.. Historians other than the Patient: Parent: Mother at bedside. Care significantly affected by the following chronic conditions: Hypothyroidism, depression, migraine. Care significantly affected by the following Social Determinants of Health: Poor access to healthcare and/or lack of insurance, Poor access to transportation, Problems related to employment. Counseling: I had a detailed discussion with the patient and/or guardian regarding the historical points, exam findings, and any diagnostic results supporting the discharge/admit diagnosis, the presence of at least one elevated blood pressure reading (>120/80) during this emergency department visit, lab results, radiology results, the need for outpatient follow up, for definitive care, a family practitioner, a neurologist, to return to the emergency department if symptoms worsen or persist or if there are any questions or concerns that arise at home. Medication response: Normal saline, Reglan, Benadryl, Toradol. Response to treatment: the patient's symptoms have markedly improved after treatment. Special discussion: Based on the patient's history, exam and DX evaluation, there is no indication for emergent intervention or inpatient [place]. It is understood by the patient/guardian that if the SXs persist or worsen they need to return immediately for re-evaluation. I discussed with the patient/guardian in detail that at this point there is no indication for admission to the hospital. It is understood, however, that if the symptoms persist or worsen the patient needs to return immediately for re-evaluation. Based on the history and exam findings, there is no indication for further emergent testing or inpatient evaluation. I discussed with the patient/guardian the need to see the neurologist for further evaluation of the symptoms. 01:33 ED course: Patient reports he is better after medication. Patient used to be on Imitrex dr5 and Ubrelvy and would like to have prescription for both of those. Will also prescribe Zofran for nausea. Recommend patient follow-up with neurology as needed. Recommend patient also follow-up primary care doctor. All questions are. Strict ER precautions given.. 07/11 23:47 Order name: CBC with Diff; Complete Time: 00:33 dr5 07/11 23:47 Order name: CMP; Complete Time: 00:36 dr5 07/11 23:59 Order name: Test, Serum; Complete Time: 00:29 ha1 07/11 23:34 Order name: CT Head Brain wo Cont dr5 07/11 23:34 Order name: IV Start; Complete Time: 00:22 dr5 Administered Medications: 00:15 Drug: NS 0.9% IV 1000 ml IV at 1000 ml once; to be given as a bolus over 60 minutes ha1 Route: IV; Rate: 1000 ml; Site: right antecubital; 02:00 Follow up: Response: No adverse reaction; IV Status: Completed infusion ha1 00:17 Drug: metoCLOPramide IVP 10 mg IVP once; over 1 to 2 minutes Route: IVP; Site: right ha1 antecubital; 00:35 Follow up: Response: No adverse reaction; Marked relief of symptoms ha1 00:17 Drug: diphenhydrAMINE IVP 25 mg IVP once Route: IVP; Site: right antecubital; ha1 00:35 Follow up: Response: No adverse reaction; Marked relief of symptoms ha1 00:19 Drug: Ketorolac IVP 15 mg IVP once Route: IVP; Site: right antecubital; ha1 01:18 Follow up: Response: No adverse reaction; Marked relief of symptoms; Pain is decreased ha1 Disposition: 05:24 Co-signature as Attending Physician, Gino Bailon DO I reviewed the patient's care tt7 provided by the Advanced Practice Provider and agree with the diagnosis and treatment plan. Disposition Summary: 07/12/25 01:33 Discharge Ordered Notes: Location: Home dr5 Condition: Stable dr5 Diagnosis - Migraine without aura, not intractable dr5 Followup: dr5 - With: Emergency Department - When: As needed - Reason: Worsening of condition Followup: dr5 - With: Private Physician - When: 1 - 2 days - Reason: Recheck today's complaints, Continuance of care, Re-evaluation by your physician Discharge Instructions: - Discharge Summary Sheet dr5 - Chronic Migraine Headache dr5 Forms: - Work release form dr5 - Medication Reconciliation Form dr5 - Patient Portal Instructions dr5 - Leadership Thank You Letter dr5 Prescriptions: - ubrogepant - take 100 milligram ORAL route as directed for 2 doses 50 to 100 mg as a single dr5 dose; if symptoms persist or return, may repeat dose after =2 hours. Maximum: 200 mg per 24 hours; 10 tablet; Refills: 0, Product Selection Permitted - Imitrex 25 mg Oral Tablet - take 1 tablet ORAL route one time - x 1 dose with fluids as early as possible dr5 after the onset of a migraine attack; if headache returns, the dose may be repeated after 2 hours, not to exceed a total daily dose of 8 tablets; 12 tablet; Refills: 0, Product Selection Permitted - Zofran 4 mg Oral Tablet - take 1 tablet ORAL route every 12 hours As needed; 20 tablet; Refills: 0, dr5 Product Selection Permitted NIH Stroke Scale - NIH Stroke Score Date: 07/12/2025 Time: 01:15 Total Score = 0 10. Dysarthria (speech clarity - read or repeat words) - 0(Normal) 11. Extinction and Inattention (visual/tactile/auditory/spatial/personal) - 0(No abnormality) 1a. Level of Consciousness (LOC) - 0(Alert) 1b. Level of Consciousness (LOC) (Month \T\ Age) - 0(Both) 1c. LOC Commands (Open \T\ Closes Eyes/Anchor Tack Puller) - 0(Both) 2. Best Gaze (Lateral Gaze Paresis) - 0(Normal) 3. Visual Field Loss - 0(No visual loss) 4. Facial Palsy - 0(Normal) 5a. Left Arm: Motor (10-second hold) - 0(No drift) 5b. Right Arm: Motor (10-second hold) - 0(No drift) 6a. Left Leg: Motor (5-second hold - always test supine) - 0(No drift) 6b. Right Leg: Motor (5-second hold - always test supine) - 0(No drift) 7. Limb Ataxia (finger/nose \T\ heel/verduzco - test with eyes open) - 0(Absent) 8. Sensory Loss (pinprick arms/legs/face) - 0(Normal) 9. Best Language: Aphasia (description/naming/reading) - 0(No aphasia) Initials: dr5 Signatures: Dispatcher [employer] EDMS Gomes, Ritu, RN RN ha1 Faraz Boykin, BUDDHIST MONK-C BUDDHIST MONK-Cdr5 Gino Bailon, DO DYER tt7
--- NOTE | 2025-07-12 01:34 | ER ---
Nurse's Notes [facility] Name: Ellne Bone Age: 24 yrs Sex: Female : 2000 Arrival Date: 07/11/2025 Time: 23:03 Bed 20 Private MD: Diagnosis: Migraine without aura, not intractable Presentation: 07/11 23:22 Chief complaint: Patient states: WAS TAKING A SHOWER BENT DOWN FOR FEW SECONDS AND ha1 SUDDENLY I FELT A HEAVY PRESSURE, HEADACHE, TIGHTNESS ON THE LEFT SIDE OF HEAD. NAUSEA. 23:22 Coronavirus screen: Client denies travel out of the [place] in the last 14 days. Ebola ha1 Screen: No symptoms or risks identified at this time. Initial Sepsis Screen: Does the patient meet any 2 criteria? No. Patient's initial sepsis screen is negative. Does the patient have a suspected source of infection? No. Patient's initial sepsis screen is negative. Risk Assessment: Do you want to hurt yourself or someone else? Patient reports no desire to harm self or others. Onset of symptoms was July 11, 2025. 23:22 Method Of Arrival: Ambulatory ha1 23:22 Acuity: FERMÍN 3 ha1 Triage Assessment: 23:39 Headache History: The patient has had previous headaches and this one is similar to ha1 previous episodes. General: Appears uncomfortable, Behavior is calm, cooperative. Pain: Complains of pain in HEADACHE LEFT SIDE OF HEAD Pain currently is 6 out of 10 on a pain scale. Quality of pain is described as heavy, pressure, Pain began suddenly, Is continuous, Also complains of nausea. Neuro: Level of Consciousness is awake, alert, obeys commands, Oriented to person, place, time, situation. Cardiovascular: Capillary refill < 3 seconds Patient's skin is warm and dry. Historical: - Allergies: 23:39 No Known Allergies; ha1 - PMHx: 23:39 depressive disorder; Migraine; Hypothyroidism; ha1 - PSHx: 23:39 LYMPH NODE REMOVAL OF NECK; ha1 - Immunization history:: Adult Immunizations up to date. - Infectious Disease History:: Denies. - Social history:: Smoking status: Patient denies any tobacco usage or history of. Screenin:22 [facility] ED Fall Risk Assessment (Adult) History of falling in the last 3 months, ha1 including since admission No falls in past 3 months (0 pts) Confusion or Disorientation No (0 pts) Intoxicated or Sedated No (0 pts) Impaired Gait No (0 pts) Mobility Assist Device Used No (0 pt) Altered Elimination No (0 pt) Score/Fall Risk Level 0 - 2 = Low Risk Oriented to surroundings, Maintained a safe environment, Educated pt \T\ family on fall prevention, incl call for assistance when getting out of bed, Hourly rounding (assess needs \T\ fall precautionary measures) done. Abuse screen: Denies threats or abuse. Denies injuries from another. Nutritional screening: No deficits noted. Tuberculosis screening: No symptoms or risk factors identified. Assessment: 23:22 General: SEE TRIAGE ASSESSMENT . 1 07/12 00:35 Reassessment: Patient and/or family updated on plan of care and expected duration. Pain ha1 level reassessed. Patient is alert, oriented x 3, equal unlabored respirations, skin warm/dry/pink. PAIN 2/10 Patient states feeling better. Patient states symptoms have improved. 01:00 Reassessment: Patient and/or family updated on plan of care and expected duration. Pain ha1 level reassessed. Patient is alert, oriented x 3, equal unlabored respirations, skin warm/dry/pink. 02:00 Reassessment: Patient and/or family updated on plan of care and expected duration. Pain ha1 level reassessed. Patient is alert, oriented x 3, equal unlabored respirations, skin warm/dry/pink. Patient denies pain at this time. Patient states feeling better. Patient states symptoms have improved. Vital Signs: 07/11 23:22 BP 126 / 82; Pulse 100; Resp 18 S; Temp 98.1; Pulse Ox 99% on R/A; Weight 111.13 kg; 1 Height 5 ft. 7 in. ; Pain 6/10; 07/12 00:45 BP 109 / 54; Pulse 73; Resp 18; Pulse Ox 99% on R/A; ha1 01:00 BP 110 / 68; Pulse 80; Resp 18 S; Pulse Ox 99% on R/A; ha1 02:00 BP 117 / 65; Pulse 74; Resp 18 S; Pulse Ox 100% on R/A; 1 07/11 23:22 Body Mass Index 38.37 (111.13 kg, 170.18 cm) 1 07/11 23:22 Pain Scale: Adult ha1 NIH Stroke Scale Scores: 01:15 NIHSS Score: 0 dr5 ED Course: 07/11 23:07 Patient arrived in ED. gm2 23:18 Faraz Boykin FNP-C is [facility]. dr5 23:18 Gino Bailon DO is Attending Physician. dr5 23:22 Patient has correct armband on for positive identification. Placed in gown. Bed in low ha1 position. Call light in reach. Side rails up X 1. Provided Education on: PLAN OF CARE . Client placed on continuous cardiac and pulse oximetry monitoring. NIBP monitoring applied. account services coordinator on. 23:22 Arm band placed on right wrist. ha1 23:39 Triage completed. ha1 07/12 00:10 Inserted saline lock: 20 gauge in right antecubital area, using aseptic technique. ha1 Blood collected. Flushed with 10 mL NS. 00:10 Initial lab(s) drawn, by me. ha1 00:13 CT Head Brain wo Cont In Process Unspecified. EDMS 01:13 Ritu Gomes, RN is Primary Nurse. ha1 01:17 No provider procedures requiring assistance completed. ha1 02:00 IV discontinued, intact, bleeding controlled, No redness/swelling at site. Pressure ha1 dressing applied. Administered Medications: 00:15 Drug: NS 0.9% IV 1000 ml IV at 1000 ml once; to be given as a bolus over 60 minutes ha1 Route: IV; Rate: 1000 ml; Site: right antecubital; 02:00 Follow up: Response: No adverse reaction; IV Status: Completed infusion ha1 00:17 Drug: metoCLOPramide IVP 10 mg IVP once; over 1 to 2 minutes Route: IVP; Site: right ha1 antecubital; 00:35 Follow up: Response: No adverse reaction; Marked relief of symptoms ha1 00:17 Drug: diphenhydrAMINE IVP 25 mg IVP once Route: IVP; Site: right antecubital; ha1 00:35 Follow up: Response: No adverse reaction; Marked relief of symptoms ha1 00:19 Drug: Ketorolac IVP 15 mg IVP once Route: IVP; Site: right antecubital; ha1 01:18 Follow up: Response: No adverse reaction; Marked relief of symptoms; Pain is decreased ha1 Medication: 01:16 VIS not applicable for this client. ha1 Outcome: 01:33 Discharge ordered by . dr5 02:00 Patient left the ED. ha1 02:00 Condition: stable ha1 02:00 Discharged to home ambulatory, with family, ha1 02:00 Discharge instructions given to patient, family, Instructed on discharge instructions, follow up and referral plans. medication usage, Demonstrated understanding of instructions, follow-up care, medications, Prescriptions given X 4, NIH Stroke Scale - NIH Stroke Score Date: 07/12/2025 Time: 01:15 Total Score = 0 10. Dysarthria (speech clarity - read or repeat words) - 0(Normal) 11. Extinction and Inattention (visual/tactile/auditory/spatial/personal) - 0(No abnormality) 1a. Level of Consciousness (LOC) - 0(Alert) 1b. Level of Consciousness (LOC) (Month \T\ Age) - 0(Both) 1c. LOC Commands (Open \T\ Closes Eyes/Mold Yarn Supervisor) - 0(Both) 2. Best Gaze (Lateral Gaze Paresis) - 0(Normal) 3. Visual Field Loss - 0(No visual loss) 4. Facial Palsy - 0(Normal) 5a. Left Arm: Motor (10-second hold) - 0(No drift) 5b. Right Arm: Motor (10-second hold) - 0(No drift) 6a. Left Leg: Motor (5-second hold - always test supine) - 0(No drift) 6b. Right Leg: Motor (5-second hold - always test supine) - 0(No drift) 7. Limb Ataxia (finger/nose \T\ heel/verduzco - test with eyes open) - 0(Absent) 8. Sensory Loss (pinprick arms/legs/face) - 0(Normal) 9. Best Language: Aphasia (description/naming/reading) - 0(No aphasia) Initials: dr5 Signatures: Dispatcher [employer] EDRitu Raines RN RN ha1 Rere Graves gm2 Faraz Boykin, BUILDING DRAFTER-C BUILDING DRAFTER-Cdr5 Corrections: (The following items were deleted from the chart) 01:18 00:35 Response: No adverse reaction; Marked relief of symptoms ha1 ha1 02:14 02:12 Patient left the ED. ha1 ha1
--- NOTE | 2025-07-12 01:37 | RAD REPORT ---
INDICATION: HEADACHE COMPARISON: No existing relevant imaging studies are available TECHNIQUE: Unenhanced CT of the head was performed per protocol. Dose reduction techniques were utilized for this exam including automated exposure control, adjustmen ts to mA and/or kV according to patient's size, and the use of iterative reconstruction techniques. FINDINGS: ACUTE INFARCTION: No. HEMORRHAGE: No. MASS: No. BRAIN: Jimenez-white matter differentiation is maintained. VENTRICLES / EXTRA-AXIAL SPACES: No hydrocephalus. BONES: Unremarkable. PARANASAL SINUSES: Unremarkable. IMPRESSION: No acute intracranial abnormality. Electronically signed by: Ramirez Flood DO 07/12/2025 01:20 AM CDT RP NR Due to temporary technical issues with the PACS/Eligible reporting system, reports are being shirley d by the in-house radiologist without review as a courtesy to ensure prompt reporting the interpreting radiologist is fully responsible for the content of the report. Transcribed Date/Time: 07/12/2025 1:37 AM
[2025-07-12 03:03] VITALS: TEMP 98.1
[2025-07-12 03:08] VITALS: BP 117/65; O2SAT 100
== END 2025-07-12 02:12 | disposition home or self-care (01) ==
LOC: ER 23:03
DX: G43.009 Migraine without aura, not intractable, without status migrainosus (principal)
CPT/HCPCS: 96361; 85025; 36415; 84703; 80053; 70450; 96375; 96374; 99285; J2765; J1200; J7030; J1885